=== PATIENT | male | born 1990 | race Two or more races ===

== ENCOUNTER 2018-01-26 18:20 | Emergency (ER) | payer SELFPAY ==
[~2018-01-26] VITALS: Ht 167.6 cm; Wt 72.6 kg
[2018-01-26 19:20] VITALS: BP 136/72
--- NOTE | 2018-01-26 19:36 | Diagnostic Imaging Report ---
EXAM: XR Right Wrist Complete, 3 or More Views CLINICAL HISTORY: PAIN TECHNIQUE: Frontal, lateral and oblique views of the right wrist. COMPARISON: No relevant prior studies available. FINDINGS: Bones/joints: No acute fracture or traumatic malalignment. Overlying soft tissue bandaging limits fine bony detail. Soft tissues: Unremarkable. No radiopaque foreign body. IMPRESSION: No acute findings.
[2018-01-26 19:44] LABS: ANION GAP 10 mmol/L (5-15); BLOOD UREA NITROGEN 14 mg/dL (7-18); CARBON DIOXIDE 26 MMOL/L (21-32); CHLORIDE 102 MMOL/L (98-107); CREATININE 0.8 MG/DL (0.55-1.30); POTASSIUM 3.8 MMOL/L (3.5-5.1); SODIUM 138 MMOL/L (136-145)
[2018-01-26 19:48] LABS: BASOPHILS % (AUTO) 1.1 % (0.0-2.0); EOSINOPHILS % (AUTO) 0.3 % (0.0-3.0); HEMATOCRIT 38.8 % (42.0-52.0); HEMOGLOBIN 13.1 G/DL (14.2-18.0); LYMPHOCYTES % (AUTO) 17.4 % (20.0-45.0); MEAN CORPUSCULAR VOLUME 87 FL (80-99); MONOCYTES % (AUTO) 11.8 % (1.0-10.0); NEUTROPHILS % (AUTO) 69.4 % (45.0-75.0); PLATELET COUNT 369 K/UL (150-450); RED BLOOD COUNT 4.45 M/UL (4.70-6.10); RED CELL DISTRIBUTION WIDTH 10.8 % (11.6-14.8); WHITE BLOOD COUNT 14.8 K/UL (4.8-10.8)
[2018-01-26 19:49] LABS: ALANINE AMINOTRANSFERASE 72 U/L (12-78); ALBUMIN 2.9 G/DL (3.4-5.0); ALBUMIN/GLOBULIN RATIO 0.5 (1.0-2.7); ALKALINE PHOSPHATASE 135 U/L (46-116); ASPARTATE AMINO TRANSFERASE 80 U/L (15-37); BILIRUBIN,TOTAL 0.5 MG/DL (0.2-1.0)
--- NOTE | 2018-01-26 20:31 | Diagnostic Imaging Report ---
EXAM: XR Chest, 1 View CLINICAL HISTORY: COUGH TECHNIQUE: Frontal view of the chest. COMPARISON: No relevant prior studies available. FINDINGS: Lungs: Left hilar and infrahilar opacities which may be inflammatory or infectious. Pleural space: Unremarkable. No pneumothorax. Heart: Heart is enlarged. Mediastinum: Unremarkable. Bones/joints: Unremarkable. IMPRESSION: Left hilar and infrahilar opacities which may be inflammatory or infectious.
[2018-01-26] MEDS ORDERED: Azithromycin 250mg tab ORAL ONE (21:00)
[2018-01-26 21:20] VITALS: BP 130/68
--- NOTE | 2018-01-26 22:41 | Emergency Room Report ---
History of Present Illness General Chief Complaint: Behavioral Complaint Source: Medical Record Present Illness HPI The patient is a 27-year-old male brought in by police department for suicidal ideation. He is on 5150 hold. They state that the patient was asking for their weapon in order to kill himself. He is unsure of his medical history. He does admit to using marijuana mixed with pain medication. He denies other drug use. He denies recent alcohol use. He is complaining of right wrist pain and states that the bones are sticking out. He states that this occurred at a job site when a metal bar fell onto his wrist. He denies any other symptoms Allergies: Coded Allergies: Shrimp (Verified Allergy, Unknown, 01/26/18) Patient History Past Medical History: see triage record Pertinent Family History: none Reviewed Nursing Documentation: PMH: Agreed; PSxH: Agreed Nursing Documentation-PMH Past Medical History: No History, Except For History Of Psychiatric Problem: Yes - OCD, ADHD, SCHZ, DEPRESSION Review of Systems All Other Systems: negative except mentioned in HPI Physical Exam Vital Signs Date Time Temp Pulse Resp B/P (MAP) Pulse Ox O2 Delivery O2 Flow Rate FiO2 01/26/18 18:31 99.0 92 16 136/72 99 Room Air Sp02 EP Interpretation: reviewed, normal General Appearance: no apparent distress, alert, GCS 15, non-toxic Head: normocephalic, atraumatic Eyes: bilateral eye normal inspection, bilateral eye PERRL, bilateral eye EOMI ENT: hearing grossly normal, normal pharynx, no angioedema, normal voice Respiratory: chest non-tender, lungs clear, normal breath sounds, speaking full sentences Cardiovascular #1: regular rate, rhythm, no edema Musculoskeletal: back normal, gait/station normal, normal range of motion, tender - R wrist Neurologic: alert, oriented x3, responsive, motor strength/tone normal, sensory intact, speech normal Psychiatric: judgement/insight normal, mood/affect normal Suicide Risk Assessment: Suicidal Ideation: Yes Had intent to initiate attempt: No Pt's plan for suicide attempt: Yes Has means to complete attempt: Yes Skin: normal color, no rash, warm/dry, well hydrated Medical Decision Making PA Attestation Dr. Zimmer is my supervising physician. Patient management was discussed with my supervising physician Diagnostic Impression: Primary Impression: Behavioral disorder ER Course The patient is a 27-year-old male brought in by police department for suicidal ideation Differential diagnoses considered but not limited to suicidal ideation, homicidal ideation, depression, psychosis, drug use PE: NAD. Afebrile. Resting in bed. PERRL RRR Lungs CTA bilat. R wrist: Full AROM intact. Skin intact. No edema or ecchymosis. SILT Labs: Significant for leukocytosis. Negative alcohol. UDS not performed at this time. Pt refusing to give urine CXR shows L hilar and infrahilar opacities. He is given azithromycin for possible lung infection. He is medically cleared and will try to transfer to psych facility. Pt is signed out to Dr. Locke at this time for further eval and treatment Laboratory Tests Test 01/26/18 19:13 White Blood Count 14.8 K/UL (4.8-10.8) H Red Blood Count 4.45 M/UL (4.70-6.10) L Hemoglobin 13.1 G/DL (14.2-18.0) L Hematocrit 38.8 % (42.0-52.0) L Mean Corpuscular Volume 87 FL (80-99) Mean Corpuscular Hemoglobin 29.3 PG (27.0-31.0) Mean Corpuscular Hemoglobin Concent 33.6 G/DL (32.0-36.0) Red Cell Distribution Width 10.8 % (11.6-14.8) L Platelet Count 369 K/UL (150-450) Mean Platelet Volume 7.6 FL (6.5-10.1) Neutrophils (%) (Auto) 69.4 % (45.0-75.0) Lymphocytes (%) (Auto) 17.4 % (20.0-45.0) L Monocytes (%) (Auto) 11.8 % (1.0-10.0) H Eosinophils (%) (Auto) 0.3 % (0.0-3.0) Basophils (%) (Auto) 1.1 % (0.0-2.0) Sodium Level 138 MMOL/L (136-145) Potassium Level 3.8 MMOL/L (3.5-5.1) Chloride Level 102 MMOL/L (98-107) Carbon Dioxide Level 26 MMOL/L (21-32) Anion Gap 10 mmol/L (5-15) Blood Urea Nitrogen 14 mg/dL (7-18) Creatinine 0.8 MG/DL (0.55-1.30) Estimate Glomerular Filtration Rate > 60 mL/min (>60) Glucose Level 108 MG/DL (74-106) H Calcium Level 9.0 MG/DL (8.5-10.1) Total Bilirubin 0.5 MG/DL (0.2-1.0) Aspartate Amino Transferase (AST) 80 U/L (15-37) H Alanine Aminotransferase (ALT) 72 U/L (12-78) Alkaline Phosphatase 135 U/L (46-116) H Total Protein 8.3 G/DL (6.4-8.2) H Albumin 2.9 G/DL (3.4-5.0) L Globulin 5.4 g/dL Albumin/Globulin Ratio 0.5 (1.0-2.7) L Salicylates Level 1.2 ug/mL (2.8-20) L Acetaminophen Level < 2 MCG/ML (10-30) L Serum Alcohol < 3 mg/dL Lab Results Impression Significant for leukocytosis. Negative alcohol. UDS not performed at this time. Pt refusing to give urine Chest X-Ray Diagnostic Results Chest X-Ray Diagnostic Results : Chest X-Ray Ordered: Yes # of Views/Limited/Complete: 1 View Indication: Other - cough EP Interpretation: Yes PA Xray: Interpretation reviewed, by supervising , and agrees with findings. Interpretation: no consolidation, no effusion, other - L hilar opacities Impression: Other - Possible L sided infection. Opacities seen Electronically Signed by: Hemanth Lopez PA-C Other X-Ray Diagnostic Results Other X-Ray Diagnostic Results : X-Ray ordered: R wrist # of Views/Limited Vs Complete: 3 View Indication: Pain EP Interpretation: Yes PA Xray: Interpretation reviewed, by supervising , and agrees with findings. Interpretation: no dislocation, no soft tissue swelling, no fractures, nonspecific bowel gas Impression: No acute disease Electronically Signed by: Hemanth Lopez PA-C Last Vital Signs Date Time Temp Pulse Resp B/P (MAP) Pulse Ox O2 Delivery O2 Flow Rate FiO2 01/26/18 18:31 99.0 92 16 136/72 99 Room Air Status: improved Signed Out To: Dr. Locke Referrals: NOT CHOSEN IPA/,REFERRING (PCP) HEMANTH LOPEZ Jan 26, 2018 22:41
[2018-01-26 23:30] VITALS: BP 125/72
[2018-01-27 02:00] VITALS: BP 115/75
[2018-01-27 05:34] VITALS: BP 125/72
== END 2018-01-27 05:30 ==
LOC: EDSEX 18:20 → EDBD 18:20 → EMR 18:54
DX: F91.9 Conduct disorder, unspecified (principal); F42.9 Obsessive-compulsive disorder, unspecified; F90.9 Attention-deficit hyperactivity disorder, unspecified type; F20.9 Schizophrenia, unspecified; F32.9 Major depressive disorder, single episode, unspecified; D72.829 Elevated white blood cell count, unspecified; M25.531 Pain in right wrist; R05 Cough; F17.200 Nicotine dependence, unspecified, uncomplicated; R45.851 Suicidal ideations; F12.90 Cannabis use, unspecified, uncomplicated; Z91.013 Allergy to seafood
CPT/HCPCS: 36415; 71045; 73110; 80053; 80307; 85025; 99285; G0480; 80329